=== PATIENT | female | born 1990 | race African-American/Black ===

== ENCOUNTER 2020-06-30 19:38 | Emergency (ER) | payer OTHER, MEDICAID ==
[~2020-06-30] VITALS: Ht 162.6 cm; Wt 88.0 kg
[2020-06-30] MEDS ORDERED: PRILOSEC OTC20 MG PO (19:49)
[2020-06-30] MEDS ORDERED: FLEXERIL PO ×2 (19:49→20:06)
[2020-06-30] MEDS ORDERED: PEPCID20 MG PO (19:49)
[2020-06-30] MEDS ORDERED: XANAX 0.5 MG0.5 M1 PO (19:50)
[2020-06-30] MEDS ORDERED: IBUPROFEN 800800 M1 PO (20:06)
[2020-06-30 20:55] VITALS: BP 121/68
== END 2020-06-30 20:55 | disposition home or self-care (01) ==
LOC: M.ERS 19:38
DX: S70.01XA Contusion of right hip, initial encounter (principal); S70.11XA Contusion of right thigh, initial encounter; K21.9 Gastro-esophageal reflux disease without esophagitis; N80.9 Endometriosis, unspecified; Z91.040 Latex allergy status; Z88.2 Allergy status to sulfonamides; W10.8XXA Fall (on) (from) other stairs and steps, initial encounter; Y93.89 Activity, other specified; Y92.89 Other specified places as the place of occurrence of the external cause; Y99.8 Other external cause status